=== PATIENT | male | born 1945 | race Caucasian/White ===

== ENCOUNTER 2016-12-22 18:09 | Inpatient (IN) | payer MEDICAID, MEDICARE ==
[~2016-12-22] VITALS: Ht 177.8 cm; Wt 58.1 kg
[2016-12-22 18:09] VITALS: BP 150/89; PULSE 80; RESP 40; TEMP 98.4; O2SAT 89
--- NOTE | 2016-12-22 18:09 | NUR ---
BIB ALS,from assited living ,c/o chest pain, abdominal pain, burning type of pain x 4 hours. abdomen soft,tender x 4 quadrants,hernia noted .bowel sound present. pt active vomiting clear liquid.
--- NOTE | 2016-12-22 18:09 | NUR ---
Placed in room 5 . Placed on ornament stitcher, blood pressure machine and pulse oximeter. To gown for exam. Side rails up.
--- NOTE | 2016-12-22 18:10 | NUR ---
ER at bedside examining patient.
--- NOTE | 2016-12-22 18:15 | NUR ---
prior to arrival # 20 gauge angiocath to . Flushed with 10 cc of normal saline. No evidence of infiltration noted. Patient tolerated well.
[2016-12-22] MEDS ORDERED: NACL 0.9% 1,000 ML IV SCH (18:17)
[2016-12-22] MEDS ORDERED: cefTRIAXone 1 GM IVPB PREMIX 50 ML IV ONE (18:30)
[2016-12-22] MEDS ORDERED: ONDANSETRON HCL 4 MG/2 ML VIAL IVP ONE (18:30)
[2016-12-22] MEDS ORDERED: PANTOPRAZOLE SODIUM 80 MG in NS 100 ML IV ONE (18:30)
[2016-12-22] MEDS ORDERED: PROCHLORPERAZINE EDISYLATE 10 MG/2 ML VIAL IVP ONE (18:30)
[2016-12-22] MEDS ORDERED: PANTOPRAZOLE SODIUM 40 MG TAB PO ONE (18:30)
--- NOTE | 2016-12-22 18:30 | NUR ---
vomited small amount of coffee ground emesis, Dr Pisano informed.
[2016-12-22] MEDS ORDERED: PANTOPRAZOLE SODIUM 40 MG/VIAL (PROTONIX) ONE (18:32)
[2016-12-22 18:42] LABS: BASOPHILS # (AUTO) 0.2 K/uL (0.0-0.2); BASOPHILS % (AUTO) 1.8 % (0.0-2.0); EOSINOPHILS # (AUTO) 0.2 K/uL (0.0-0.4); EOSINOPHILS % (AUTO) 2.2 % (0.0-4.0); HEMOGLOBIN 16.9 g/dL (14.0-18.0); LYMPHOCYTES # (AUTO) 2.3 K/uL (1.0-5.5); LYMPHOCYTES % (AUTO) 21.8 % (20.5-51.5); MEAN CORPUSCULAR HEMOGLOBIN 31 pg (27-31); MEAN CORPUSCULAR HGB CONC 33 % (32-36); MEAN CORPUSCULAR VOLUME 94 fL (79.0-98.0); MONOCYTES # (AUTO) 0.9 K/uL (0.0-1.0); MONOCYTES % (AUTO) 8.4 % (1.7-9.3); NEUTROPHILS % (AUTO) 65.8 % (40.0-70.0); PLATELET COUNT (AUTO) 209 K/uL (130-430); RED BLOOD CELL COUNT(AUTO) 5.42 MIL/uL (4.2-6.2); RED CELL DISTRIBUTION WIDTH 13.8 % (9.0-15.0); WHITE BLOOD COUNT (AUTO) 10.6 K/uL (4.8-10.8)
--- NOTE | 2016-12-22 18:50 | NUR ---
# 18 gauge angiocath placed to LAC. Use of asceptic technique. Opsite placed over site. Blood return noted. Flushed with 10 cc of normal saline. No evidence of infiltration noted. Patient tolerated well.
[2016-12-22] MEDS ORDERED: MORPHINE 4 MG/ML INJ. SYRINGE IVP ONE (19:00)
[2016-12-22 19:03] LABS: ANION GAP 6 (5-15); CALCIUM 9.6 mg/dL (8.4-11.0); CHLORIDE 100 mmol/L (98-107); CREATININE 0.81 mg/dL (0.55-1.30); GLUCOSE 105 mg/dL (70-99); POTASSIUM 3.4 mmol/L (3.5-5.1); SODIUM SERUM 138 mmol/L (136-145); UREA NITROGEN, BLOOD 12 mg/dL (8-21)
[2016-12-22 19:05] LABS: INR 1.2 (0.80-1.20); PROTHROMBIN TIME 12.9 SECS (9.5-12.5)
[2016-12-22 19:08] LABS: ALANINE AMINOTRANSFERASE 24 U/L (12-78); ALBUMIN 3.9 g/dL (3.4-4.8); ASPARTATE AMINOTRANSFERASE 15 U/L (10-37); TOTAL BILIRUBIN 1.4 mg/dL (0.0-1.0); TOTAL PROTEIN, SERUM 7.2 g/dL (6.4-8.3)
[2016-12-22] MEDS ORDERED: COMMUNICATION ORDER XX ONE (19:15)
--- NOTE | 2016-12-22 19:15 | NUR ---
hand off to production shift supervisor Delvin BUNN
--- NOTE | 2016-12-22 19:20 | NUR ---
Pt is resting in his bed. Pt is complaining of 8/10 epigastric pain. Pt had just recieved morphine. Will continue to monitor via flame gouger. No other injuries or complaints mentioned/noted. No distress noted.
[2016-12-22] MEDS: KCL 20 mEq in NS 1000 mL 1,000 ML IV SCH (19:47)
[2016-12-22] MEDS: POTASSIUM CHLORIDE 30 MEQ in NS 250 ML IV ONE (20:00)
[2016-12-22] MEDS ORDERED: ONDANSETRON HCL 4 MG/2 ML VIAL IVP PRN (20:00)
--- NOTE | 2016-12-22 20:00 | NUR ---
Unable to put in home meds. No list from home and pt does not remember her meds.
--- NOTE | 2016-12-22 20:40 | NUR ---
ADMISSION NOTE Received patient from ER via gurkatya, received report from RN. Patient admitted with diagnosis of UPPER GI BLEED.
--- NOTE | 2016-12-22 20:45 | NUR ---
Patient will be admitted to care of Dr. Hardy. Admitted to Telemetry unit. Will go to room 134B. Summary report printed. Report given to Lizbet BUNN.
[2016-12-22 20:50] VITALS: BP 128/91; PULSE 65; RESP 18; TEMP 98.9; O2SAT 96
--- NOTE | 2016-12-22 21:00 | NUR ---
NOTES RECEIVED PT VIA GURNEY TO ROOM 134B. PT IS IN BED. ORIENTED PT TO ROOM AND CALL LIGHT. PT VERBALIZED UNDERSTANDING. PT IS A/A/O X3. NO ACUTE DISTRESS NOTED. PT DENIES ANY NAUSEA OR VOMITING AT THIS TIME. INFORMED PT NOT TO DRINK WATER OF EAT ANY FOOD FOR FURTHER TESTING. PT STATED" I WILL DRINK, THEY'VE TESTED ME ENOUGH". PT APPEARS TO NONCOMPLIANT. IV TO THE RT FOREARM, GAUGE 22 AND LEFT AC, GAUGE 18 NOTED. IV IS PATENT, DRESSING CLEAN,DRY, AND INTACT. DENIES ANY PAIN AT THIS TIME. BED LOCKED AND IN LOW POSITION, SIDE RAILS UP X3. BED ALARM ON. CALL LIGHT WITHIN REACH. PT STATED HE DOES NOT HAVE ANY PREFERRED PHARMACY AND DOES NOT NEED ONE. PERSONAL BELONGINGS INVENTORY DOCUMENTED. WILL CONTINUE T MONITOR.
[2016-12-22] MEDS ORDERED: MORPHINE 2 MG/ML INJ. SYRINGE IVP PRN (21:45)
[2016-12-22] MEDS ORDERED: ACETAMINOPHEN 650 MG SUPP.RECT RC PRN (21:45)
[2016-12-22 22:16] VITALS: BP 128/91; PULSE 65; RESP 20; TEMP 98.9; O2SAT 96
--- NOTE | 2016-12-22 22:30 | NUR ---
NOTES; TYLENOL 650MG ADMINISTERED RECTALLY FOR 3/10 ABD PAIN.
--- NOTE | 2016-12-22 23:10 | NUR ---
Consultation Paged Reason for consultation: Upper GI Bleed Was consult called: Yes Person who was notified: Hayley Consulting Physician: Ismael Hernandez; Dr Mcclure is on-call for Dr Xiao Park Guard Specialty: GI Park Guard
--- NOTE | 2016-12-22 23:15 | NUR ---
NOTES; EFFECTIVE PAIN MEDICATION.
--- NOTE | 2016-12-22 23:27 | NUR ---
PAGED DR ELAM, [place].
--- NOTE | 2016-12-22 23:45 | NUR ---
NOTES; PT REFUSED TO BE NPO. PT IS DRINKING FROM THE [employer]. HE SAID WATCH ME I'M GOING TO DRINK. PT WENT TO THE [employer] AND DRANK WATER. K-RIDER AND IVF. PT STATED" THAT IS A BUNCH OF LIES, I DON'T NEED ANY POTASSIUM OR IV FLUIDS" . EXPLAINED TO PT ABOUT THE IMPORTANCE OF MAINTAINING LEVEL OF POTASSIUM. PT STATED " I DON'T CARE, THE DOCTOR IS LYING, LEAVE ME ALONE". CHARGE NURSE AND RN COVERING NOTIFIED. DR. ELAM CALLED, SPOKE WITH MD AND INFORMED HER ABOUT PT REFUSAL OF K-RIDER, IVF AND NPO. DR ELAM STATED " JUST DOCUMENT.
--- NOTE | 2016-12-23 02:10 | NUR ---
Notes; pt refused blood draw. Charge nurse and RN covering notified.
--- NOTE | 2016-12-23 04:30 | NUR ---
NOTES; URINE SAMPLE COLLECTED AND SENT TO LAB.
[2016-12-23 06:07] LABS: HEMATOCRIT 45.6 % (36-54); HEMOGLOBIN 15.3 g/dL (14.0-18.0)
--- NOTE | 2016-12-23 06:30 | NUR ---
NRSG: RECEIVED PATIENT FROM NIGHT NURSE, AWAKE,ALERT AND ORIENTED X 4, CRANKY . RESPIRATION EVEN AND UNLABORED .LUNGS CLEAR BILATERAL, ON ROOM AIR AND O2 SAT 94%. NO C/O OF PAIN ,NO NAUSEA, NO VOMITING, NO BLEEDING. HAD IV LEFT ANTECUBITAL INTACT AND INPLACED. ANOTHER IV SITE ON THE RIGHT FOREARM INTACT AND INPLACED .HAD BRUISE ON THE RIGHT HIP . STANDBY ASSIST TO AMBULATES TO TOILET ,GAIT STEADY BUT AT TIMES WABBLY. CALL LIGHT WITHIN REACH.
[2016-12-23 06:36] LABS: BILIRUBIN,URINE NEGATIVE (NEGATIVE); BLOOD, URINE NEGATIVE (NEGATIVE); CLARITY/URINE CLEAR (CLEAR); COLOR,URINE YELLOW (YELLOW); GLUCOSE,URINE NEGATIVE (NEGATIVE); KETONES,URINE NEGATIVE (NEGATIVE); LEUKOCYTE ESTERASE ,URINE NEGATIVE (NEGATIVE); NITRITE, URINE NEGATIVE (NEGATIVE); PROTEIN URINE NEGATIVE (NEGATIVE)
[2016-12-23] MEDS: POTASSIUM CHLORIDE 30 MEQ in NS 250 ML IV ONE (06:52)
--- NOTE | 2016-12-23 06:58 | NUR ---
K-rider Started Patient was finally agreeable to k-rider. It was started to left arm and infusing well. Patient is stable, all fall and safety precautions in place, will continue to monitor with FENCE POST CUTTER until endorsed to AM nurse at bedside.
[2016-12-23 07:20] LABS: ALANINE AMINOTRANSFERASE 19 U/L (12-78); ALBUMIN 3.1 g/dL (3.4-4.8); ANION GAP 6 (5-15); ASPARTATE AMINOTRANSFERASE 15 U/L (10-37); BILIRUBIN,DIRECT 0.3 mg/dL (0.0-0.3); CALCIUM 8.4 mg/dL (8.4-11.0); CHLORIDE 105 mmol/L (98-107); CREATININE 0.62 mg/dL (0.55-1.30); GLUCOSE 84 mg/dL (70-99); POTASSIUM 3.8 mmol/L (3.5-5.1); SODIUM SERUM 136 mmol/L (136-145); THYROID STIMULATING HORMONE 1.32 uIu/mL (0.34-4.82); TOTAL BILIRUBIN 1.6 mg/dL (0.0-1.0); TOTAL PROTEIN, SERUM 5.8 g/dL (6.4-8.3); UREA NITROGEN, BLOOD 10 mg/dL (8-21)
[2016-12-23 08:00] VITALS: BP 133/81; PULSE 84; RESP 20; TEMP 97.6; O2SAT 94
--- NOTE | 2016-12-23 08:00 | NUR ---
AMBULATES: ASSISTED TO GO TO TOILET, GAIT STEADY BUT WABBLY AT TIMES AND NAIMA TO BED ON HIS SIDE.CALL LIGHT WITHIN REACH.
[2016-12-23] MEDS: PANTOPRAZOLE SODIUM 40 MG/VIAL (PROTONIX) IVP SCH (09:23)
--- NOTE | 2016-12-23 10:45 | NUR ---
ACTIVITY: RESTING ON BED SLEEPING, NO PAIN.
[2016-12-23 12:00] VITALS: BP 128/76; PULSE 54; RESP 17; TEMP 97.4; O2SAT 94
[2016-12-23 12:45] VITALS: Ht 177.8 cm; Wt 58.1 kg
--- NOTE | 2016-12-23 12:46 | NUR ---
Patient up with HOUSE DESIGNER assist x2. Back to bed. Urination x1 in urinal. 300ml yellow urine. Patient attempting to eat roommates food.
--- NOTE | 2016-12-23 14:00 | NUR ---
ACTIVITY: RESTING ON BED WITH IVF NS +20 MEQ KCL AT 100 CC/HR.ON THE LEFT ANTECUBITAL INTACT AND INPLACED.
[2016-12-23] MEDS: KCL 20 mEq in NS 1000 mL 1,000 ML IV SCH ×2 (14:01→23:42)
[2016-12-23 15:19] LABS: HEMOGLOBIN 15.2 g/dL (14.0-18.0)
--- NOTE | 2016-12-23 15:23 | NUR ---
ROUNDS: SEEN AND EXAMINED BY DR. ELAM AND SPOKE TO THE PATIENT WHILE NPO,
[2016-12-23 15:27] LABS: HEMATOCRIT 45.3 % (36-54)
[2016-12-23] MEDS ORDERED: ALBUTEROL SULFATE 0.083% 2.5 MG/3 ML VIAL.NEB INH PRN (15:45)
--- NOTE | 2016-12-23 15:52 | NUR ---
DC TELE: TELE DCD, PATIENT ON MEDSUR.
[2016-12-23 16:00] VITALS: BP 129/84; PULSE 53; RESP 20; TEMP 97.7; O2SAT 96
--- NOTE | 2016-12-23 16:14 | NUR ---
ICECHIP: TAKING ICE CHIPS ORDERED .WILL WAIT FOR GI MD TO COME TO EVALUATE PATIENT. NO PAIN, NO NAUSEA, NO VOMITING, NO BLEEDING. CALL LIGHT WITHIN REACH.
--- NOTE | 2016-12-23 18:30 | NUR ---
CLOSING: RESTING ON BED, IVF ON PROGRESS, IV SITE INTACT AND INPLACED, NO S/S OF INFILTRATION. NO PAIN, NO NAUSEA, NO VOMITING, NO BLEEDING. CALL LIGHT WITHIN REACH,
[2016-12-23 19:23] VITALS: BP 130/76; PULSE 60; RESP 18; TEMP 97.9; O2SAT 94
--- NOTE | 2016-12-23 19:50 | NUR ---
NOTES; RESTING IN BED, PT IS A/A/O X3. NO ACUTE DISTRESS NOTED. PT DENIES ANY NAUSEA OR VOMITING AT THIS TIME. VITAL SIGNS STABLE, AFEBRILE. IV TO THE RT FOREARM, GAUGE 22 AND LEFT AC, GAUGE 18 NOTED. ORDERED IVF INFUSING WELL ON THE LEFT AC, PATENT. BOTH IV DRESSING CLEAN,DRY, AND INTACT. ORIENTED PT TO ROOM AND CALL LIGHT. INSTRUCTED PT TO USE CALL LIGHT TO CALL FOR ANY NEED TO ASSIST. PT VERBALIZED UNDERSTANDING. DENIES ANY PAIN AT THIS TIME. BED LOCKED AND IN LOW POSITION, SIDE RAILS UP X3. BED ALARM ON. CALL LIGHT WITHIN REACH. WILL CONTINUE T MONITOR.
--- NOTE | 2016-12-23 22:30 | NUR ---
NOTES; APPEARED TO BE SLEEPING, EYES CLOSED. EASILY AROUSED . DENIES ANY PAIN AT THIS TIME. SAFETY MEASURES IN PROGRESS.
[2016-12-24] VITALS: BP 130/76; PULSE 60; RESP 18; TEMP 97.9; O2SAT 94
--- NOTE | 2016-12-24 | NUR ---
NOTES; ASSISTED WITH URINAL. PT VOIDED FREELY. DENIES ANY PAIN AT THIS TIME. SAFETY MEASURES IN PROGRESS.
--- NOTE | 2016-12-24 02:30 | NUR ---
NOTES; APPEARED TO BE SLEEPING, EYES CLOSED, EASILY AROUSED . DENIES ANY PAIN AT THIS TIME. SAFETY MEASURES IN PROGRESS.
--- NOTE | 2016-12-24 04:30 | NUR ---
NOTES; APPEARED TO BE SLEEPING, EYES CLOSED, RESPIRATION EVEN AND UNLABORED. EASILY AROUSED . DENIES ANY PAIN AT THIS TIME. SAFETY MEASURES IN PROGRESS.
[2016-12-24 05:00] VITALS: BP_SYST 136; BP_SYST 147; BP_DIAS 60; BP_DIAS 86; PULSE 63; PULSE 83; RESP 20; TEMP 97; O2SAT 94; O2SAT 95
--- NOTE | 2016-12-24 06:47 | NUR ---
NOTES; PT REFUSED BED BATH. RESTING QUIETLY, RESPIRATION EVEN AND UNLABORED. IVF INFUSING WELL AND PATENT. ALL NEEDS ATTENDED, DENIES ANY PAIN AT THIS TIME. SAFETY MEASURES IN PROGRESS.
[2016-12-24 07:21] LABS: EOSINOPHILS # (AUTO) 0.3 K/uL (0.0-0.4); LYMPHOCYTES # (AUTO) 1.8 K/uL (1.0-5.5); MONOCYTES # (AUTO) 0.9 K/uL (0.0-1.0)
[2016-12-24 07:24] LABS: ANION GAP 7 (5-15); CALCIUM 8.8 mg/dL (8.4-11.0); CHLORIDE 104 mmol/L (98-107); CREATININE 0.54 mg/dL (0.55-1.30); GLUCOSE 85 mg/dL (70-99); SODIUM SERUM 136 mmol/L (136-145); UREA NITROGEN, BLOOD 7 mg/dL (8-21)
--- NOTE | 2016-12-24 07:30 | NUR ---
AM ROUNDS: No s/s of distress noted. Will continue to monitor.
[2016-12-24 07:31] LABS: BASOPHILS % (AUTO) 0.3 % (0.0-2.0); EOSINOPHILS % (AUTO) 2.2 % (0.0-4.0); HEMOGLOBIN 14.6 g/dL (14.0-18.0); LYMPHOCYTES % (AUTO) 15.3 % (20.5-51.5); MEAN CORPUSCULAR HEMOGLOBIN 32 pg (27-31); MEAN CORPUSCULAR HGB CONC 34 % (32-36); MEAN CORPUSCULAR VOLUME 94 fL (79.0-98.0); MONOCYTES % (AUTO) 7.6 % (1.7-9.3); NEUTROPHILS # (AUTO) 9.1 K/uL (1.8-7.7); NEUTROPHILS % (AUTO) 74.6 % (40.0-70.0); PLATELET COUNT (AUTO) 189 K/uL (130-430); RED BLOOD CELL COUNT(AUTO) 4.56 MIL/uL (4.2-6.2); RED CELL DISTRIBUTION WIDTH 13.9 % (9.0-15.0)
[2016-12-24 07:39] LABS: WHITE BLOOD COUNT (AUTO) 12.1 K/uL (4.8-10.8)
[2016-12-24] MEDS: PANTOPRAZOLE SODIUM 40 MG/VIAL (PROTONIX) IVP SCH (08:21)
[2016-12-24 08:24] VITALS: BP 137/83; PULSE 76; RESP 18; TEMP 98.4; O2SAT 93
--- NOTE | 2016-12-24 10:12 | NUR ---
PATIENT RESTING: Patient resting quietly. No acute distress noted. Vital signs within normal range.
[2016-12-24 11:24] VITALS: BP 125/79; PULSE 70; RESP 19; TEMP 97.9; O2SAT 99
--- NOTE | 2016-12-24 12:18 | NUR ---
PATIENT RESTING: Patient resting quietly. No acute distress noted. Vital signs within normal range.
--- NOTE | 2016-12-24 14:10 | NUR ---
PATIENT RESTING: Patient resting quietly. No acute distress noted. Vital signs within normal range.
[2016-12-24] MEDS: KCL 20 mEq in NS 1000 mL 1,000 ML IV SCH (15:06)
[2016-12-24 16:00] VITALS: BP 136/86; PULSE 50; RESP 20; TEMP 97.6; O2SAT 97
--- NOTE | 2016-12-24 16:06 | NUR ---
PATIENT RESTING: Patient resting quietly. No acute distress noted. Vital signs within normal range.
[2016-12-24 17:36] VITALS: BP 128/74; PULSE 74; RESP 20; TEMP 97.9; O2SAT 99
--- NOTE | 2016-12-24 18:02 | NUR ---
CLOSING NOTE: All needs met. Spoke with caregiver Dorene at . Informed her that patient may be discharged if he tolerates advanced diet. Stated she will provide transport to assisted living. Will endorse to [facility] shift nurse.
--- NOTE | 2016-12-24 18:22 | NUR ---
COMMUNICATION: Spoke with Dorene, caregiver. 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
--- NOTE | 2017-01-01 15:40 | NUR ---
Discharge Follow Up Phone Call: ART HISTORIAN placed phone call to pt's pet care attendant, Dorene ([phone]). Dorene states that the pt is doing much better. Dorene states that she has made an appointment for a doctor to come to [place] to visit pt this week. Dorene states that she has no concerns/needs at this time and denied the need for further follow up calls.
== END 2016-12-24 19:51 | disposition home or self-care (01) | DRG 253 ==
LOC: SED 18:09 → STU 19:15 → SMU 12-23 15:54
PROVIDERS: ADMIT Internal Medicine; ATTEND Internal Medicine
DX: K92.2 Gastrointestinal hemorrhage, unspecified (principal); J44.9 Chronic obstructive pulmonary disease, unspecified; R54 Age-related physical debility; E44.1 Mild protein-calorie malnutrition; E87.6 Hypokalemia; F10.20 Alcohol dependence, uncomplicated; Z72.0 Tobacco use; Z68.1 Body mass index [BMI] 19.9 or less, adult
CPT/HCPCS: 36415; 71010; 80048; 80053; 80076; 81003; 83605; 83735-TC; 84443-TC; 85018-TC; 85025; 85610-TC; 85730-TC; 86886; 86900; 86901; 87040-TC; 93005; 96365; 96375; 99291; C9113; J0696; J0780; J2270; J2405; J3480; J7030; J7050